=== PATIENT | female | born 1965 | race Caucasian/White ===

== ENCOUNTER 2023-05-27 22:08 | Inpatient (IN) ==
[2023-05-27] MEDS ORDERED: Ketamine HCL 50 mg/ml 10 ml VIAL (500 MG) IV ONE (22:54)
[2023-05-27] MEDS ORDERED: Lactated Ringers 1000 ml BAG 1,000 ML IV ONE (22:55)
[2023-05-27] MEDS ORDERED: Propofol 10 MG/ML 20 ML BTL IV PUSH ONE (23:26)
[2023-05-28 03:34] LABS: Hematocrit 35.5 % (35-45); Mean Corpuscular Hemoglobin 28.4 pg (27-33); Mean Corpuscular Volume 83.6 fL (80-97); Mean Platelet Volume 7.2 fL (7.5-11.2); Platelet Count 289 10^3/uL (150-450); Red Blood Count 4.24 10^6/uL (3.63-4.92); Red Cell Distribution Width 15.2 % (12-17); White Blood Count 8.6 10^3/uL (3.8-11.8)
[2023-05-28 03:40] LABS: INR 1.05 (0.88-1.18)
[2023-05-28 03:49] LABS: Calcium 9.2 mg/dL (8.6-10.3); Creatinine, Serum 0.55 mg/dL (0.51-0.95); Potassium 3.7 mmol/L (3.5-5.0); eGFR CKD-EPI 106.8 (>60)
[2023-05-28] MEDS ORDERED: Ondansetron 4 mg VIAL 2 MG/ML 2 ml VIAL IV PRN (03:49)
[2023-05-28] MEDS ORDERED: Enoxaparin 40 MG/0.4 ML SYR SUBCUT ONE (12:17)
[2023-05-29] MEDS ORDERED: Enoxaparin 40 MG/0.4 ML SYR SUBCUT ONE (14:30)
[2023-05-29] MEDS ORDERED: Senna TAB 8.6 mg TAB PO PRN (20:10)
[2023-05-29] MEDS ORDERED: Magnesium Hydroxide LIQ 30 ML UDC PO PRN (20:10)
[2023-05-29] MEDS ORDERED: Polyethylene Glycol 3350 17 GM PACKET PO PRN (20:10)
[2023-05-29] MEDS ORDERED: Magnesium Hydroxide LIQ 30 ML UDC PO SCH (21:00)
[2023-05-30 06:06] VITALS: BP 133/72
== END 2023-05-30 08:00 | disposition home or self-care (01) | DRG 563 ==
LOC: ED 22:08 → EDHOLD 05-28 03:24 → SSU 05-28 04:52
PROVIDERS: ADMIT Hospitalist; ATTEND Hospitalist